=== PATIENT | female | born 1985 | race Hispanic/Latino ===

== ENCOUNTER 2017-02-18 15:38 | Emergency (ER) | payer OTHER ==
[2017-02-18 15:47] VITALS: BP 99/57; PULSE 103; RESP 16; TEMP 98.1; O2SAT 99
[2017-02-18] MEDS ORDERED: Sodium Chloride 0.9% 1,000 ML IV STA (15:57)
--- NOTE | 2017-02-18 15:59 | ED PDOC ---
HPI: Abdomen Time Seen by Provider: 02/18/17 15:41 Chief Complaint (Nursing): GI Problem Chief Complaint (Provider): Vomiting and diarrhea History Per: Patient Additional Complaint(s): 32 yo female, 14 w , , presents to ED for evaluation of low grade fever, 100.5 F, bodyaches, chills, fatigue, n/v/d since yesterday. vomited 6 x since 1 am, last at 9 am. 3 episodes of loose, watery, non bloody stools. denies vaginal bleeding or abd pain. Past Medical History Reviewed: Nursing Documentation, Vital Signs Vital Signs: Last Vital Signs Temp 98.1 F 02/18/17 15:45 Pulse 103 H 02/18/17 15:45 Resp 16 02/18/17 15:45 BP 99/57 L 02/18/17 15:45 Pulse Ox 99 02/18/17 15:58 - Medical History PMH: No Chronic Diseases - Surgical History Surgical History: No Surg Hx - Family History Family History: States: No Known Family Hx - Living Arrangements Living Arrangements: With Family - Social History Current smoker - smoking cessation education provided: No Alcohol: None Drugs: Denies - Home Medications Home Medications: Ambulatory Orders Medication Instructions Recorded Doxylamine/Pyridoxine HCl (B6) 2 each PO HS #20 tablet. 02/18/17 [Carl Guzman 10-10 mg Tablet] - Allergies Allergies/Adverse Reactions: Allergies Allergy/AdvReac Type Severity Reaction Status Date / Time No Known Allergies Allergy Verified 02/18/17 15:43 Review of Systems ROS Statement: Except As Marked, All Systems Reviewed And Found Negative Gastrointestinal: Positive for: Nausea, Vomiting, Abdominal Pain, Diarrhea Physical Exam - Reviewed Nursing Documentation Reviewed: Yes Vital Signs Reviewed: Yes - Physical Exam Appears: Positive for: Well, Non-toxic, No Acute Distress Head Exam: Positive for: ATRAUMATIC, NORMAL INSPECTION, NORMOCEPHALIC Skin: Positive for: Normal Color, Warm, DRY Eye Exam: Positive for: EOMI, Normal appearance, PERRL ENT: Positive for: Normal ENT Inspection Neck: Positive for: Normal, Painless ROM Cardiovascular/Chest: Positive for: Regular Rate, Rhythm Respiratory: Positive for: CNT, Normal Breath Sounds Gastrointestinal/Abdominal: Positive for: Normal Exam, Bowel Sounds, Soft. Negative for: Tenderness Back: Positive for: Normal Inspection Extremity: Positive for: Normal ROM Neurologic/Psych: Positive for: Alert, Oriented - Laboratory Results Result Diagrams: 02/18/17 16:24 02/18/17 16:24 - ECG O2 Sat by Pulse Oximetry: 99 Medical Decision Making Medical Decision Making: IV access established and treatment initiated with Zofran and IVF On re-eval, reports feeling greatly improved. abdomen remains soft non tender and non distended No further episodes of diarrhea or vomiting while in ED. Pt able to tolerate PO Diclegis RX administered. advised OB follow up. return to ED with any concerns Disposition - Clinical Impression Clinical Impression: Gastroenteritis - Patient ED Disposition Is Patient to be Admitted: No - Disposition Disposition: Routine/Home Disposition Time: 17:42 Condition: STABLE Prescriptions: Doxylamine/Pyridoxine HCl (B6) [Carl Guzman 10-10 mg Tablet] 2 each PO HS #20 tablet. Instructions: Gastroenteritis (ED) Forms: [facility] [place] [facility] (Bhutanese)
[2017-02-18 16:27] LABS: BASO % 0.2 % (0.0-2.0); EOS % 0.2 % (0.0-4.0); HEMATOCRIT 37.5 % (34.0-47.0); LYMPH # 0.5 K/uL (1.0-4.3); LYMPH % 4.4 % (20.0-40.0); MEAN CELL VOLUME 92.9 fl (81.0-99.0); MEAN CORPUSCULAR HEMOGLOBIN 31.8 pg (27.0-31.0); MEAN CORPUSCULAR HGB CONC 34.2 g/dL (33.0-37.0); MEAN PLATELET VOLUME 8.8 fl (7.2-11.7); MONO # 0.4 K/uL (0.0-0.8); MONO % 4.2 % (0.0-10.0); NEUT # 9.4 K/uL (1.8-7.0); PLATELET COUNT 198 K/uL (130-400); RED CELL DISTRIBUTION WIDTH 12.5 % (11.5-14.5); WHITE BLOOD COUNT 10.4 K/uL (4.8-10.8)
[2017-02-18 16:35] LABS: URINE BACTERIA OCC (<OCC); URINE BILIRUBIN NEGATIVE (NEGATIVE); URINE BLOOD NEGATIVE (NEGATIVE); URINE COLOR AMBER (YELLOW); URINE GLUCOSE (UA) NEG (Normal); URINE KETONE NEGATIVE (NEGATIVE); URINE LEUKOCYTE ESTERASE NEG Leu/uL (Negative); URINE PROTEIN 30 mg/dL (NEGATIVE); WBC URINE 2 /hpf (0-5)
[2017-02-18 16:55] LABS: ALB/GLOB RATIO 1.3 (1.0-2.1); ALKALINE PHOSPHATASE 46 U/L (38-126); ALT/SGPT 29 U/L (9-52); AMYLASE 80 U/L (30-110); AST/SGOT 26 U/L (14-36); BILIRUBIN,TOTAL 0.5 mg/dl (0.2-1.3); BLOOD UREA NITROGEN 10 mg/dl (7-17); CARBON DIOXIDE 22 mmol/L (22-30); CHLORIDE 100 mmol/L (98-107); GFR AFRICAN-AMERICAN > 60; GLUCOSE,RANDOM 107 mg/dL (65-105); LIPASE 86 U/L (23-300); POTASSIUM 3.8 MMOL/L (3.6-5.0); SODIUM 131 mmol/l (132-148)
[2017-02-18 17:39] LABS: NEUTROPHIL 84 % (42-75); TOTAL CELLS COUNTED 100
== END 2017-02-18 17:38 | disposition home or self-care (01) ==
LOC: H.ER 15:38
DX: K52.9 Noninfective gastroenteritis and colitis, unspecified (principal); Z33.1 Pregnant state, incidental
CPT/HCPCS: 80053; 81003; 81025; 82150; 83690; 85025; 87804; 96374; 99283; J2405; J7040